=== PATIENT | female | born 1965 | race Caucasian/White ===

== ENCOUNTER 2020-06-27 19:34 | Emergency (ER) | payer OTHER, MEDICAID, SELFPAY ==
[2020-06-27 19:41] VITALS: BP 157/94; PULSE 100; RESP 18; TEMP 37.7; O2SAT 99
--- NOTE | 2020-06-27 20:01 | ED_ITS ---
HPI - Weakness General Chief complaint: Weakness Stated complaint: possibly dehydrated Time Seen by Provider: 06/27/20 20:01 Source: patient Mode of arrival: Ambulatory Limitations: no limitations History of Present Illness HPI Narrative: The patient presents with weakness, chills and generalized myalgia. She denies headache or sore throat. She has no chest discomfort, no dyspnea or cough. She has no abdominal discomfort. Over 2 weeks ago, she had developed a flare to rosacea, which in the past signaled that she was . She is 55 years old with an IUD in place that time, but a test was pos itive. She saw her physician, the IUD was removed. AcG was elevated, but a fetus was not detected. She was given methotrexate. Last week the methotrexate was repeated due to a persistent elevated hCG level. After the 2nd dose of methotrexate she developed the above symptoms. She has no abdominal discomfort. She has had no vaginal bleeding. She is feeling no dizziness, no weakness, no near syncope. She has follow-up arranged with her doctor tomorrow. Related Data Home Medications Medication Instructions Recorded Confirmed [losartan] #0 10/27/17 [metformin] #0 10/27/17 Previous Rx's Medication Instructions Recorded phenazopyridine [Pyridium] 100 mg PO TID #20 tab 10/27/17 sulfamethoxazole-trimethoprim 1 tab PO BID #20 tab 10/27/17 Allergies Allergy/AdvReac Type Severity Reaction Status Date / Time flurodantin Allergy Unknown Uncoded 12/10/17 12:51 microdantin Allergy Unknown Uncoded 12/10/17 12:51 Review of Systems Constitutional Constitutional: Reports chills, Denies fever(s), Reports lethargy and Reports weakness Eyes Eyes: Denies change in vision ENT Ears, Nose, Mouth, and Throat: Denies change in voice, Denies vertigo, Denies neck pain and Denies sore throat Cardiovascular Cardiovascular: Denies chest pain, Denies irregular heart rhythm, Denies lightheadedness and Denies dyspnea Respiratory Respiratory: Denies cough and Denies dyspnea Gastrointestinal Gastrointestinal: Denies abdominal pain, Denies change in bowel habits, Denies diarrhea, Denies nausea and Denies vomiting Genitourinary Genitourinary: Denies dysuria Genitourinary: Denies dysuria Comments: No vaginal bleeding Musculoskeletal Musculoskeletal: Reports arthralgias and Denies neck pain Integumentary/Breasts Comments: No significant rash or skin lesions. Neurologic Neurologic: Denies confusion, Denies vertigo and Reports weakness Psychiatric Psychiatric: Denies anxiety and Denies confusion Patient History Medical History (Updated 06/27/20 @ 21:31 by Sanya Pond MD) Hypertension (Acute) Surgical History (Updated 06/27/20 @ 20:14 by Sanya Pond MD) No significant past surgical history (Acute) Exam Initial Vital Signs Initial Vital Signs: Vital Signs Temperature 99.9 F H 06/27/20 19:41 Pulse Rate 100 H 06/27/20 19:41 Respiratory Rate 18 06/27/20 19:41 Blood Pressure 157/94 H 06/27/20 19:41 Pulse Oximetry 99 06/27/20 19:41 Const General: cooperative and well developed Nutritional Appearance: well nourished [facility] Head: normocephalic and atraumatic Eyes Pupils: PERRL EOM: EOM intact bilaterally Neck Neck: normal visual inspection Resp Effort & Inspection: normal respiratory effort and able to speak in complete sentences Auscultation: clear to auscultation bilaterally Cardio Rate: regular rate Rhythm: regular rhythm Heart Sounds: S1 normal, S2 normal, no click, no gallops, no murmurs and no rubs Pulses: normal peripheral pulses GI Inspection: non-distended Palpation: soft, no hepatosplenomegaly, No guarding, No pulsatile mass and No tender Auscultation: normal bowel sounds Skin General: no rashes or lesions noted Neuro General: patient alert, patient oriented x3, gait normal and no focal motor deficits Speech: speech normal Extrem General: full ROM, no pedal edema and no calf tenderness Psych Mental Status: mental status grossly normal Speech and Movement: speech and movement normal Course Orders Ordered: ED Orders 06/27/20 19:07 Urine Microscopic Stat 06/27/20 20:02 EKG-12 Lead Routine 06/27/20 20:05 Complete Blood Count AUTO DIFF Stat Comprehensive Metabolic Panel Stat HCG Quantitative /Beta subunit Stat Lipase Stat Discontinued Medications Sodium Chloride (Normal Saline 0.9%) 1,000 mls @ 1,000 mls/hr IV BOLUS ONE Stop: 06/27/20 21:07 Last Infusion: 06/27/20 21:38 Dose: 0 mls/hr Documented by: Admin: 06/27/20 20:15 Dose: 1,000 mls/hr Documented by: LISA Vital Signs Vital signs: Vital Signs - 8 hr 06/27/20 19:41 06/27/20 21:40 Temperature 99.9 F H Pulse Rate 100 H 90 Respiratory Rate 18 12 Blood Pressure 157/94 H 152/86 H Pulse Oximetry 99 96 MDM - Weakness Lab Data Attestation: I reviewed the patient's lab results. Result diagrams: 06/27/20 20:05 06/27/20 20:05 Labs: Lab Results 06/27/20 06/27/20 06/27/20 Range/Units 19:07 20:05 20:05 WBC 1.8 L* (4.5-11.0) X10^3/uL RBC 3.67 L (4.0-5.2) X10^6/uL Hgb 11.6 L (12.0-16.0) g/dL Hct 33.7 L (36-46) % MCV 91.8 (80-100) fL MCH 31.7 (26-34) PG MCHC 34.5 (30-36) % RDW 12.7 (11.6-14.8) % Plt Count 110 L (150-400) X10^3/uL Neut % (Auto) Not Reportable Lymph % (Auto) Not Reportable [place] % (Auto) Not Reportable Eos % (Auto) Not Reportable Baso % (Auto) Not Reportable Lymph # (Auto) Not Reportable [place] # (Auto) Not Reportable Baso # (Auto) Not Reportable Total Counted 50 Seg Neutrophils % 28.0 L (38-70) % Band Neutrophils % 4.0 (3-7) % Lymphocytes % (Manual) 58.0 H (25-45) % Atypical Lymphs % 6.0 H ( - 0) % Monocytes % (Manual) 2.0 (2-11) % Eosinophils % (Manual) 2.0 (2-4) % Neutrophils # (Manual) 576 L (3375-2503) /uL Platelet Estimate Decreased on smear RBC Morphology Normal morphology Sodium (137-145) mmol/L Potassium (3.4-5.1) mmol/L Chloride (98-107) mmol/L Carbon Dioxide (22-32) mmol/L BUN (7-17) mg/dL Creatinine (0.52-1.04) mg/dL Estimated GFR (>60) mL/min BUN/Creatinine Ratio (6-22) Glucose (70-100) mg/dL Calcium (8.4-10.2) mg/dL Total Bilirubin (0.2-1.3) mg/dL AST (14-36) IU/L ALT (<35) IU/L Alkaline Phosphatase (38-126) U/L Total Protein (6.3-8.2) g/dL Albumin (3.5-5.0) g/dL Globulin (1.7-4.1) g/dL Albumin/Globulin Ratio (1.0-2.8) Lipase (23-300) U/L HCG, Quant 5.9 mIU/mL Urine RBC 1-5/hpf (0-5/HPF) Urine WBC 1-5/hpf (0-5/HPF) Ur Squamous Epith Cells 5-10 /hpf H (0-5/HPF) Urine Bacteria None seen (None) Ur Culture Indicated? Cult not indicated 06/27/20 Range/Units 20:05 WBC (4.5-11.0) X10^3/uL RBC (4.0-5.2) X10^6/uL Hgb (12.0-16.0) g/dL Hct (36-46) % MCV (80-100) fL MCH (26-34) PG MCHC (30-36) % RDW (11.6-14.8) % Plt Count (150-400) X10^3/uL Neut % (Auto) Lymph % (Auto) [place] % (Auto) Eos % (Auto) Baso % (Auto) Lymph # (Auto) [place] # (Auto) Baso # (Auto) Total Counted Seg Neutrophils % (38-70) % Band Neutrophils % (3-7) % Lymphocytes % (Manual) (25-45) % Atypical Lymphs % ( - 0) % Monocytes % (Manual) (2-11) % Eosinophils % (Manual) (2-4) % Neutrophils # (Manual) (0189-1154) /uL Platelet Estimate RBC Morphology Sodium 137 (137-145) mmol/L Potassium 3.7 (3.4-5.1) mmol/L Chloride 103 (98-107) mmol/L Carbon Dioxide 26 (22-32) mmol/L BUN 16 (7-17) mg/dL Creatinine 1.21 H (0.52-1.04) mg/dL Estimated GFR 46.0 L (>60) mL/min BUN/Creatinine Ratio 13.2 (6-22) Glucose 203 H (70-100) mg/dL Calcium 9.3 (8.4-10.2) mg/dL Total Bilirubin 1.2 (0.2-1.3) mg/dL AST 521 H (14-36) IU/L ALT 659 H (<35) IU/L Alkaline Phosphatase 147 H (38-126) U/L Total Protein 7.6 (6.3-8.2) g/dL Albumin 4.5 (3.5-5.0) g/dL Globulin 3.1 (1.7-4.1) g/dL Albumin/Globulin Ratio 1.5 (1.0-2.8) Lipase 131 (23-300) U/L HCG, Quant mIU/mL Urine RBC (0-5/HPF) Urine WBC (0-5/HPF) Ur Squamous Epith Cells (0-5/HPF) Urine Bacteria (None) Ur Culture Indicated? Point of Care Testing Test Results Negative Urine Dip Bedside Urine Glucose Negative Bedside Urine Bilirubin - Negative Bedside Urine Ketone - Negative Urine Specific [place] 1.020 Bedside Urine Occult Blood ++ Bedside Urine pH 6.0 Bedside Urine Protein - Negative Bedside Urine Urobilinogen - Negative Bedside Urine Nitrite - Negative Bedside Urine Leukocytes - Negative Esterase ECG Data Attestation: I personally reviewed and interpreted this ECG as follows: (Normal sinus rhythm rate 97 beats per minute. Borderline right axis deviation. Nonspecific ST T wave changes. No ectopy.) [facility] Narrative Medical decision making narrative: Labs reviewed. The patient appears to have h epatic toxicity was well as neutropenia. I do not have baseline labs, but the patient reports these as new. Her labs were being monitored by her PCM. She is clinically stable. Copies of the lab results were given to the patient prior to discharge.. Discharge Plan Departure Patient Disposition: Home Clinical Impression: Drug-induced leukopenia, Hepatotoxicity Adverse drug effect Qualifiers: Encounter type: initial encounter Qualified Code(s): T50.905A - Adverse effect of unspecified drugs, medicaments and biological substances, initial encounter Discharge Date/Time: 06/27/20 21:42 Instructions: DI for Adverse Drug Reaction -- Allergic Activity Restrictions/Additional Instructions: I have no baseline labs on you, but you have significant changes in your liver test, an ear blood counts are low. These are known side effects of methotrexate. Your hCG level is 5.9 I will give you a copy of your labs, follow-up with your doctor as planned. In the meantime rest, drink plenty of fluids, assure good nutrition. Return the ER as needed. Prescriptions: No Action [losartan] Qty: 0 RF: 0 [metformin] Qty: 0 RF: 0 sulfamethoxazole-trimethoprim 800 MG/160 MG tablet 1 tab PO BID Qty: 20 RF: 0 phenazopyridine [Pyridium] 100 MG tablet 100 mg PO TID Qty: 20 RF: 0 Referrals: Darvin Vera ARNP [Primary Care Provider] -
[2020-06-27 20:02] LABS: Bacteria Urine None Seen; Culture Indicated Urine Cult Not Indicated; RBC Urine 1-5/HPF (0-5/HPF); Squamous Epithelial Cell Urine 5-10 /HPF (0-5/HPF); WBC Urine 1-5/HPF (0-5/HPF)
[2020-06-27] MEDS: SODIUM CHLORIDE 0.9% 1,000 ML 1000 ML IV (20:15)
[2020-06-27 20:30] LABS: Hematocrit 33.7 % (36-46); Hemoglobin 11.6 g/dL (12.0-16.0); Mean Corpuscular HGB Conc 34.5 % (30-36); Mean Corpuscular Hemoglobin 31.7 PG (26-34); Mean Corpuscular Volume 91.8 fL (80-100); Platelet Count 110 X10^3/uL (150-400); Red Blood Cell Count 3.67 X10^6/uL (4.0-5.2); Red Cell Distribution Width 12.7 % (11.6-14.8)
[2020-06-27 20:36] LABS: Alanine Aminotransferase 659 IU/L (<35); Albumin 4.5 g/dL (3.5-5.0); Albumin Globulin Ratio 1.5 (1.0-2.8); Alkaline Phosphatase 147 U/L (38-126); Aspartate Aminotransferase 521 IU/L (14-36); BUN Creatinine Ratio 13.2 (6-22); Bilirubin Total 1.2 mg/dL (0.2-1.3); Blood Urea Nitrogen 16 mg/dL (7-17); Calcium 9.3 mg/dL (8.4-10.2); Carbon Dioxide 26 mmol/L (22-32); Chloride 103 mmol/L (98-107); Globulin 3.1 g/dL (1.7-4.1); Glucose 203 mg/dL (70-100); HEMOLYSIS < 15 (0-50); Lipase 131 U/L (23-300); Potassium 3.7 mmol/L (3.4-5.1); Sodium 137 mmol/L (137-145); Total Protein 7.6 g/dL (6.3-8.2)
[2020-06-27 20:42] LABS: Add Manual Diff / Slide Review YES; White Blood Cell Count 1.8 X10^3/uL (4.5-11.0)
[2020-06-27 20:52] LABS: HCG Quantitative /Beta subunit 5.9 mIU/mL
[2020-06-27 21:02] LABS: Neutrophils Absolute Manual 576 /uL (3000-5900); Platelet Estimate Decreased on smear; RBC Morphology Normal Morphology; Total Cells Counted 50
[2020-06-27 21:40] VITALS: BP 152/86; PULSE 90; RESP 12; O2SAT 96
== END 2020-06-27 21:42 | disposition home or self-care (01) ==
PROVIDERS: Emergency Provider Emergency Medicine; PCP Registered Nurse
DX: D70.2 Other drug-induced agranulocytosis (principal); K71.9 Toxic liver disease, unspecified; T50.905A Adverse effect of unspecified drugs, medicaments and biological substances, initial encounter
CPT/HCPCS: 36415; 80053; 81003; 81015; 81025; 83690; 84702; 85025; 93005; 93010; 96360; 99284